=== PATIENT | female | born 1955 | race Caucasian/White ===

== ENCOUNTER → 2017-01-10 | Outpatient (CLI) | payer SELFPAY ==
[2017-01-15 10:42] LABS: FREE T4 (FREE THYROXINE) 1.49 ng/dL (0.93-1.71)
== END ==
LOC: LAB 10:05
PROVIDERS: ATTEND Physician Assistant Medical
DX: E03.9 Hypothyroidism, unspecified (principal)
CPT/HCPCS: 84439; 84443